=== PATIENT | female | born 1965 | race Caucasian/White ===

== ENCOUNTER 2019-02-18 15:54 | Outpatient (REF) | payer OTHER, SELFPAY ==
[2019-02-18 20:11] LABS: Anion Gap 9.5 mmol/L (3-11); BUN 9 mg/dL (7-18); CO2 28.5 mmol/L (21.0-32.0); CREATININE 0.74 mg/dL (0.55-1.02); Calcium 9.8 mg/dL (8.5-10.1); Chloride 103 mmol/L (98-107); Glucose 85 mg/dL (70-100); Potassium 4.8 mmol/L (3.5-5.1); Sodium 141 mmol/L (136-145)
== END 2019-02-18 16:14 ==
LOC: NCHCN 15:54
PROVIDERS: PCP Family Medicine; Visit Provider Family Medicine
DX: E55.9 Vitamin D deficiency, unspecified (principal); E78.5 Hyperlipidemia, unspecified; R73.9 Hyperglycemia, unspecified
CPT/HCPCS: 80048; 82306; 83036

== ENCOUNTER 2019-12-24 11:45 | Outpatient (REF) | payer OTHER, SELFPAY ==
[2019-12-24 13:51] LABS: Hemoglobin A1C 6.1 % (3.8-5.6)
[2019-12-24 14:00] LABS: ALT 36 U/L (14-59); AST 22 U/L (15-37); Albumin 3.5 g/dL (3.4-5.0); Alkaline Phosphatase 113 U/L (46-116); Anion Gap 7.1 mmol/L (3-11); BUN 14 mg/dL (7-18); Bilirubin, Total 0.8 mg/dL (0.2-1.0); CO2 28.9 mmol/L (21.0-32.0); CREATININE 0.92 mg/dL (0.55-1.02); Calcium 9.3 mg/dL (8.5-10.1); Calculated LDL 128 mg/dL (<100); Chloride 103 mmol/L (98-107); Cholesterol 191 mg/dL (<200); Glucose 103 mg/dL (74-106); HDL Cholesterol 49 mg/dL (40-60); Potassium 4.5 mmol/L (3.5-5.1); Sodium 139 mmol/L (136-145); TSH (W/Ref FT4) 1.46 uIU/mL (0.36-3.74); Total Protein 7.4 g/dL (6.4-8.2); Triglyceride 73 mg/dL (<150)
[2019-12-27 10:05] LABS: Vitamin D 25 Total 16.3 ng/ml (30-100)
== END 2019-12-24 12:05 ==
LOC: NCHCN 11:45
PROVIDERS: PCP Family Medicine; Visit Provider Family Medicine
DX: I10 Essential (primary) hypertension (principal); R73.03 Prediabetes; E55.9 Vitamin D deficiency, unspecified; E78.5 Hyperlipidemia, unspecified
CPT/HCPCS: 80053; 80061; 82306; 83036; 84443

== ENCOUNTER 2021-03-22 11:46 | Outpatient (REF) | payer OTHER, SELFPAY ==
--- NOTE | 2021-03-22 11:00 | PAPFT_PTH ---
PATIENT: Katheryn Schulte LOC: [facility]#:[id number] AGE/SX: 55/F ROOM: RE03/22/[address]: Chey Wheat : 1965 BED: DIS: 03/22/2021 SPEC #: [id number] RECD: 03/23/21 13:03 STATUS: JHONY REVELES #: [id number] SHAHEEN: 03/22/21 11:[address]: Chey Wheat DEPT: [facility] Cytology RECD BY: Jayla Wei ENTERED: 03/23/21 13:04 SP TYPE: PAPFT OTHR DR: Niesha Munoz Tissues: 1 - CX/ENDOCX FOR PAP SMEARS Procedures: PAP THIN PREP/[facility] Screening HPV DNA PROBE Comments: [id number]
== END 2021-03-22 11:47 | disposition home or self-care (01) ==
LOC: NCHCN 11:46
PROVIDERS: PCP Family Medicine; Visit Provider Nurse Practitioner
DX: Z00.00 Encounter for general adult medical examination without abnormal findings (principal); Z12.4 Encounter for screening for malignant neoplasm of cervix; Z11.51 Encounter for screening for human papillomavirus (HPV)
CPT/HCPCS: 88142; 87624

== ENCOUNTER 2021-04-12 11:32 | Outpatient (REF) | payer OTHER, SELFPAY ==
--- NOTE | 2021-04-12 09:00 | ENDOMET_PTH ---
PATIENT: Katheryn Schulte LOC: [facility] U#:[id number] AGE/SX: 55/F ROOM: RE04/12/[address]: Lilliana Kruse : 1965 BED: DIS: 04/12/2021 SPEC #: [id number] RECD: 04/12/21 12:57 STATUS: JHONY RERuel #: [id number] SHAHEEN: 04/12/21 09:[address]: Lilliana Kruse DEPT: Surgical Specimen RECD BY: Jayla Wei ENTERED: 04/12/21 12:58 SP TYPE: Endomet OTHR DR: Niesha Munoz Tissues: 1 - ENDOMETRIUM BX/MARTINE Procedures: GROSS AND MICRO LEVEL 4 Comments: [id number] (SUBMITTED IN THIN PREP VIAL)
== END 2021-04-12 11:33 | disposition home or self-care (01) ==
LOC: LBN 11:32
PROVIDERS: PCP Family Medicine; Visit Provider Obstetrics & Gynecology Gynecology
DX: N85.8 Other specified noninflammatory disorders of uterus (principal); N95.0 Postmenopausal bleeding
CPT/HCPCS: 88305

== ENCOUNTER 2022-11-29 17:37 | Outpatient (REF) | payer OTHER, SELFPAY ==
[2022-11-29 13:41] LABS: AST 16 U/L (15-37); Calculated LDL 168 mg/dL (<100); Cholesterol 247 mg/dL (<200); HDL Cholesterol 52 mg/dL (40-60); Triglyceride 135 mg/dL (<150)
[2022-11-29 13:58] LABS: Vitamin D 25 Total 28.5 ng/mL (30-100)
== END 2022-11-29 17:38 | disposition home or self-care (01) ==
LOC: NCHCN 17:37
PROVIDERS: PCP Family Medicine; Visit Provider Family Medicine
DX: I10 Essential (primary) hypertension (principal); R73.03 Prediabetes; E55.9 Vitamin D deficiency, unspecified; K75.9 Inflammatory liver disease, unspecified
CPT/HCPCS: 80061; 82306; 83036; 84450

== ENCOUNTER 2023-06-06 15:26 | Outpatient (REF) | payer OTHER, SELFPAY ==
[2023-06-06 15:29] LABS: Hemoglobin A1C 5.9 % (<5.7)
[2023-06-06 15:54] LABS: Calculated LDL 164 mg/dL (<100); Cholesterol 250 mg/dL (<200); HDL Cholesterol 47 mg/dL (40-60); Triglyceride 196 mg/dL (<150)
[2023-06-06 16:03] LABS: Vitamin D 25 Total 27.3 ng/mL (30-100)
== END 2023-06-06 15:27 | disposition home or self-care (01) ==
LOC: NCHCN 15:26
PROVIDERS: PCP Family Medicine; Visit Provider Family Medicine
DX: E78.5 Hyperlipidemia, unspecified (principal); R73.03 Prediabetes; E55.9 Vitamin D deficiency, unspecified
CPT/HCPCS: 80061; 82306; 83036

== ENCOUNTER → 2023-06-26 02:34 | Outpatient (CLI) | payer OTHER, SELFPAY ==
--- NOTE | 2023-06-26 | DI.DEXA_ITS ---
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 Lat eral survey image of the thoracic and lumbar spine. COMPARISON: No exams were available for comparison FINDINGS: Lateral view of the thoracic and lumbar spine shows no evidence of compression fractures. Bone mineral density measurements of the lumbar spine correspond to a total T-score of 0.2, in the n ormal range. Bone mineral density measurements of the left hip correspond to a total T-score of 2.2. The femoral neck T-score is 0.5, in the normal range.. Theleft forearm bone mineral density measurements correspond to a T-score of the distal 3rd of 0.4 i n the normal range.. IMPRESSION: Normal bone mineral density.
== END ==
PROVIDERS: PCP Family Medicine; Visit Provider Family Medicine
DX: Z13.820 Encounter for screening for osteoporosis (principal); E55.9 Vitamin D deficiency, unspecified
CPT/HCPCS: 77080

== ENCOUNTER 2023-10-24 11:39 | Outpatient (REF) | payer BC, SELFPAY ==
[2023-10-24 15:27] LABS: BUN 15 mg/dL (7-18); CREATININE 0.8 mg/dL (0.55-1.02); Calcium 9.3 mg/dL (8.5-10.1); Calculated LDL 163 mg/dL (<100); Chloride 104 mmol/L (98-107); Cholesterol 244 mg/dL (<200); Estimated GFR 86.42 (mL/min/1.73m2); Glucose 105 mg/dL (74-106); HDL Cholesterol 59 mg/dL (40-60); Potassium 4.6 mmol/L (3.5-5.1); Sodium 141 mmol/L (136-145); Triglyceride 110 mg/dL (<150)
[2023-10-24 15:57] LABS: Vitamin D 25 Total 27.2 ng/mL (30-100)
[2023-10-24 22:29] LABS: Parathyroid Hormone,Intact 83 pg/mL (19-88)
== END 2023-10-24 11:40 | disposition home or self-care (01) ==
LOC: NCHCN 11:39
PROVIDERS: PCP Family Medicine; Referring Provider Family Medicine; Visit Provider Family Medicine
DX: I10 Essential (primary) hypertension (principal); E55.9 Vitamin D deficiency, unspecified
CPT/HCPCS: 80048; 80061; 82306; 83970